=== PATIENT | male | born 1960 | race Caucasian/White ===

== ENCOUNTER 2018-08-17 07:11 | Day surgery (SDC) | payer OTHER ==
[~2018-08-17] VITALS: Ht 170.2 cm; Wt 64.4 kg
[~2018-08-17 07:11] MED LIST: BACITRACIN OINT 500U/GM, 15 GM ONE; EPINEPHRINE 1 MG/ML, 1ML ONE; EPINEPHRINE TOPICAL SOLN 1 MG/ML, 30ML ONE; FLUORESCEIN SODIUM 500 MG/5 ML ONE; LIDOCAINE 1%, 20ML ONE; OXYMETAZOLINE NASAL SPRAY 0.05%, 15ML ONE
[2018-08-17 07:46] VITALS: BP 108/74
[2018-08-17] MEDS ORDERED: LACTATED RINGERS 1,000 ML IV SCH (07:54)
[2018-08-17 07:55] VITALS: BP 108/74
[2018-08-17] MEDS ORDERED: ACETAMINOPHEN 500 MG TABLET PO ONE (08:00)
[2018-08-17] MEDS ORDERED: GABAPENTIN 300 MG CAPSULE PO ONE (08:00)
[2018-08-17] MEDS ORDERED: SERT50TA PO (08:03)
[2018-08-17] MEDS ORDERED: TRAZ50TA66 PO (08:03)
[2018-08-17] MEDS ORDERED: PROMETHAZINE 25 MG/ML, 1ML IV PRN (09:30)
[2018-08-17] MEDS ORDERED: METOPROLOL 1 MG/ML, 5ML IV PRN (09:30)
[2018-08-17] MEDS ORDERED: FENTANYL PF 100 MCG/2ML IV PRN (09:30)
[2018-08-17] MEDS ORDERED: hydrALAzine 20 MG/ML, 1ML IV PRN (09:30)
[2018-08-17] MEDS ORDERED: PROCHLORPERAZINE 5 MG/ML, 2ML IV PRN (09:30)
[2018-08-17] MEDS ORDERED: HYDROmorphone 2 MG/ML, 1ML IVPush PRN (09:30)
[2018-08-17] MEDS ORDERED: MEPERIDINE/PF 25MG/0.5ML IVPush PRN (09:30)
[2018-08-17] MEDS ORDERED: HALOPERIDOL 5 MG/ML IV PRN (09:30)
[2018-08-17] MEDS ORDERED: DIPHENHYDRAMINE 50 MG/ML, 1ML IVPush PRN (09:30)
[2018-08-17] MEDS ORDERED: LABETALOL 5MG/ML, 20ML IV PRN (09:30)
[2018-08-17] MEDS ORDERED: OXYcodone 5 MG/5 ML ORAL.SOL UDC PO PRN (09:30)
[2018-08-17] MEDS ORDERED: FENTANYL PF 100 MCG/2ML ONE (09:56)
[2018-08-17] MEDS ORDERED: ONDANSETRON 2MG/ML, 2ML ONE (11:12)
[2018-08-17] MEDS ORDERED: GLYCOPYRROLATE 0.2MG/1ML, 5ML ONE (11:12)
[2018-08-17] MEDS ORDERED: SUCCINYLCHOLINE 20 MG/ML, 10ML ONE (11:12)
[2018-08-17] MEDS ORDERED: PROPOFOL 10 MG/ML, 20ML ONE (11:12)
[2018-08-17] MEDS ORDERED: NEOSTIGMINE 1 MG/ML, 10ML ONE (11:12)
[2018-08-17] MEDS ORDERED: ROCURONIUM 10MG/ML,5ML ONE (11:12)
[2018-08-17] MEDS ORDERED: CEFAZOLIN 1,000 MG ONE (11:12)
[2018-08-17] MEDS ORDERED: DEXAMETHASONE 4 MG/ML, 1ML ONE (11:12)
== END 2018-08-17 13:10 | disposition home or self-care (01) ==
LOC: OUT 07:11
PROVIDERS: ATTEND Otolaryngology
DX: J32.3 Chronic sphenoidal sinusitis (principal); J34.2 Deviated nasal septum; F41.8 Other specified anxiety disorders; Z79.899 Other long term (current) drug therapy
CPT/HCPCS: 30520; 31240; 31259; 31267; 87070; 87075; 87077; 87102; 87107; 87186; 87205; 88304; 88305; 88311; 88312; J0171; J0330; J0690; J1100; J2405; J2704; J2710; J3010; J7120